=== PATIENT | female | born 1985 | race Two or more races ===

== ENCOUNTER 2020-08-16 17:45 | Emergency (ER) | payer BC ==
[~2020-08-16] VITALS: Ht 162.6 cm; Wt 89.4 kg
[2020-08-16 18:41] LABS: Basophils # (auto) 0 10 ^3/uL (0-0.2); Basophils % (auto) 0.4 % (0.0-2.0); Eosinophils # (auto) 0.2 10 ^3/uL (0-0.8); Eosinophils % (auto) 2.6 % (0.0-7.0); Hematocrit 40.8 % (36.0-46.0); Hemoglobin 14.4 g/dL (12.2-16.2); Lymphocytes # (auto) 1.3 10 ^3/uL (0.4-5.4); Lymphocytes % (auto) 17.9 % (10.0-50.0); Mean Corpuscular Hemoglobin 30.9 pg (28.0-32.0); Mean Corpuscular Hgb Conc. 35.4 g/dL (32.0-36.0); Mean Corpuscular Volume 87.2 fL (80.0-100.0); Monocytes # (auto) 0.5 10 ^3/uL (0-1.3); Monocytes % (auto) 6.9 % (0.0-12.0); Neutrophils # (auto) 5.4 10 ^3/uL (1.6-8.6); Neutrophils % (auto) 72.2 % (37.0-80.0); Nucleated Red Blood Cells % 0.1 %; Red Blood Cells 4.68 10^6/uL (4.0-5.20); Red Cell Distribution Width 13.3 % (11.8-14.3); White Blood Cell 7.5 10^3/uL (4.4-10.8)
[2020-08-16 18:54] LABS: Albumin 3.7 g/dL (3.4-5.0); Calcium 8.8 mg/dL (8.5-10.1); Potassium 3.7 mmol/L (3.5-5.1)
[2020-08-16 18:59] LABS: Bilirubin, Total 0.4 mg/dL (0.2-1.0); Total Protein 7.9 g/dL (6.4-8.2)
[2020-08-16 18:59] LABS: Urine Bacteria NONE SEEN /hpf (None Seen); Urine Blood Negative /uL (Negative); Urine Specific Gravity 1.014 (1.001-1.035); Urine WBC 6 /hpf (0 - 5)
[2020-08-16 20:15] LABS: Alcohol, Urine < 3.0 mg/dL (0-10); Amphetamine Screen, Urine NEGATIVE (NEGATIVE); Barbiturate Scree,Urine NEGATIVE (NEGATIVE); Benzodiazephine Screen, Urine NEGATIVE (NEGATIVE); Cannabinoid Screen, Urine NEGATIVE (NEGATIVE); Cocaine Screen, Urine NEGATIVE (NEGATIVE); Opiate Scree,Urine NEGATIVE (NEGATIVE); Phencyclidine Screen, Urine NEGATIVE (NEGATIVE)
[2020-08-16 22:00] VITALS: BP 126/62
== END 2020-08-16 22:43 | disposition home or self-care (01) ==
LOC: ER 17:45
DX: K29.00 Acute gastritis without bleeding (principal); F12.10 Cannabis abuse, uncomplicated; Z88.0 Allergy status to penicillin
CPT/HCPCS: 36415; 76700; 80053; 80307; 81001; 83690; 85025; 93005

== ENCOUNTER → 2020-10-17 | Outpatient (CLI) | payer BC ==
[2020-10-17 09:35] LABS: Cholesterol 170 mg/dL (< 200); HDL Cholesterol 40 mg/dL (40-59); LDL Cholesterol 111 mg/dL (< 100); Triglycerides 91 mg/dL (< 150)
== END | disposition home or self-care (01) ==
LOC: LAB 08:45
PROVIDERS: ATTEND Internal Medicine
DX: I10 Essential (primary) hypertension (principal); N28.89 Other specified disorders of kidney and ureter; Z78.0 Asymptomatic menopausal state
CPT/HCPCS: 36415; 80061; 83036; 84443

== ENCOUNTER → 2020-10-19 | Outpatient (CLI) | payer BC | END | disposition home or self-care (01) | LOC: LAB 10:34 | PROVIDERS: ATTEND Internal Medicine | DX: R51.9 Headache, unspecified (principal) | CPT/HCPCS: 36415; 85652; 86141; 86225; 86235 ==